=== PATIENT | male | born 1935 | race Asian ===

== ENCOUNTER 2022-02-26 03:57 | Inpatient (IN) | payer MEDICARE, OTHER ==
[~2022-02-26] VITALS: Ht 170.2 cm; Wt 81.5 kg
[2022-02-26] MEDS ORDERED: IPRATROPIUM BROM 0.5 MG/2.5ML INH SOL NEB ONE (04:15)
[2022-02-26] MEDS ORDERED: methylPREDNISolone SOD SUCC 125 MG/2 ML VL IV ONE (04:15)
[2022-02-26] MEDS ORDERED: ALBUTEROL SULF 2.5 MG/0.5ML(0.5%) NEB SOLN NEB ONE (04:15)
[2022-02-26 04:22] LABS: Basophils # (auto) 0 10 ^3/uL (0-0.2); Basophils % (auto) 0.1 % (0.0-2.0); Eosinophils # (auto) 0.1 10 ^3/uL (0-0.8); Eosinophils % (auto) 0.5 % (0.0-7.0); Hematocrit 50.3 % (41.0-53.0); Hemoglobin 17.2 g/dL (13.5-17.5); Lymphocytes # (auto) 2.4 10 ^3/uL (0.4-5.4); Lymphocytes % (auto) 22.6 % (10.0-50.0); Mean Corpuscular Hemoglobin 29.8 pg (28.0-32.0); Mean Corpuscular Hgb Conc. 34.1 g/dL (32.0-36.0); Mean Corpuscular Volume 87.5 fL (80.0-100.0); Monocytes # (auto) 0.8 10 ^3/uL (0-1.3); Monocytes % (auto) 7.1 % (0.0-12.0); Neutrophils # (auto) 7.4 10 ^3/uL (1.6-8.6); Neutrophils % (auto) 69.7 % (37.0-80.0); Nucleated Red Blood Cells % 0.3 %; Red Blood Cells 5.75 10^6/uL (4.5-5.90); Red Cell Distribution Width 13.6 % (11.8-14.3); White Blood Cell 10.7 10^3/uL (4.4-10.8)
[2022-02-26 04:41] LABS: Magnesium 2.1 mg/dL (1.6-2.6); Potassium 4.2 mmol/L (3.5-5.1)
[2022-02-26 04:43] LABS: Lactic Acid w/Reflex 2.6 mmol/L (0.4-2.0)
[2022-02-26 04:45] LABS: BUN/Creatinine Ratio 16.4; Bilirubin, Total 1.2 mg/dL (0.2-1.0); Total Protein 7.8 g/dL (6.4-8.2)
[2022-02-26] MEDS ORDERED: AZITHROMYCIN 500MG/ 250ML 250 ML IV ONE (04:45)
[2022-02-26] MEDS ORDERED: cefTRIAXone SOD 1,000 MG VL IV ONE (04:45)
[2022-02-26 04:49] LABS: INR 0.97 (0.9-1.15); Partial Thromboplastin Time 29.3 sec (24.6-33.4)
[2022-02-26] MEDS ORDERED: IOHEXOL 350 MG/ML 100ML IJ ONE (05:22)
[2022-02-26 09:57] VITALS: BP 128/60
[2022-02-26] MEDS: methylPREDNISolone SOD SUCC 125 MG/2 ML VL IV SCH ×3 (12:07→22:53)
[2022-02-26] MEDS ORDERED: HEPARIN SODIUM (PORCINE) 5000 UNITS/ML 1ML VIAL IV ONE ×3 (12:15)
[2022-02-26] MEDS: HEPARIN DRIP/D5W 100UNITS/ML 250 ML IV SCH (12:26)
[2022-02-26 12:29] LABS: INR 0.97 (0.9-1.15); Partial Thromboplastin Time 27.8 sec (24.6-33.4)
[2022-02-26 12:37] LABS: Basophils # (auto) 0 10 ^3/uL (0-0.2); Basophils % (auto) 0.1 % (0.0-2.0); Eosinophils # (auto) 0 10 ^3/uL (0-0.8); Hematocrit 51.1 % (41.0-53.0); Hemoglobin 16.8 g/dL (13.5-17.5); Lymphocytes # (auto) 0.4 10 ^3/uL (0.4-5.4); Lymphocytes % (auto) 7.6 % (10.0-50.0); Mean Corpuscular Hemoglobin 28.7 pg (28.0-32.0); Mean Corpuscular Volume 87.2 fL (80.0-100.0); Monocytes # (auto) 0.1 10 ^3/uL (0-1.3); Monocytes % (auto) 1.1 % (0.0-12.0); Neutrophils # (auto) 4.9 10 ^3/uL (1.6-8.6); Neutrophils % (auto) 91.2 % (37.0-80.0); Nucleated Red Blood Cells % 0.1 %; Red Blood Cells 5.86 10^6/uL (4.5-5.90); Red Cell Distribution Width 13.5 % (11.8-14.3)
[2022-02-26 12:39] LABS: White Blood Cell 5.3 10^3/uL (4.4-10.8)
[2022-02-26 19:11] LABS: INR 1.03 (0.9-1.15)
[2022-02-26 19:27] LABS: Partial Thromboplastin Time > 139.0 sec (24.6-33.4)
[2022-02-27] VITALS (7 sets, daily range): BP systolic 116–143; BP diastolic 59–76
[2022-02-27 02:55] LABS: INR 1.02 (0.9-1.15)
[2022-02-27 03:00] LABS: Partial Thromboplastin Time 105.2 sec (24.6-33.4)
[2022-02-27] MEDS: HEPARIN DRIP/D5W 100UNITS/ML 250 ML IV SCH (04:00)
[2022-02-27] MEDS: methylPREDNISolone SOD SUCC 125 MG/2 ML VL IV SCH ×2 (05:26→11:05)
[2022-02-27] MEDS ORDERED: FUR20I IM (07:19)
[2022-02-27] MEDS ORDERED: TRAV0.00 OP (07:19)
[2022-02-27] MEDS ORDERED: ALBUAER3 IN (07:19)
[2022-02-27] MEDS ORDERED: DILT60TA PO (07:19)
[2022-02-27] MEDS ORDERED: DOXY100C2 PO (07:19)
[2022-02-27] MEDS ORDERED: FLUT1AER3 IN (07:19)
[2022-02-27] MEDS ORDERED: POM (07:19)
[2022-02-27] MEDS ORDERED: PRED1SUS4 OP (07:19)
[2022-02-27] MEDS ORDERED: TRIA0.1P17 TOP (07:19)
[2022-02-27] MEDS ORDERED: ALBU0.084 IN (07:19)
[2022-02-27 10:32] LABS: INR 0.99 (0.9-1.15); Partial Thromboplastin Time 57.3 sec (24.6-33.4)
[2022-02-27] MEDS: cefTRIAXone 1GM/50ML D5W 50 ML IV SCH (11:05)
[2022-02-27] MEDS ORDERED: APIXABAN 5 MG TAB PO SCH (12:00)
[2022-02-27] MEDS: AZITHROMYCIN 500MG/ 250ML 250 ML IV SCH (12:04)
[2022-02-27] MEDS ORDERED: guaiFENesin-DM 100/10mg/5ml SYR PO PRN (12:45)
[2022-02-27] MEDS: APIXABAN 5 MG TAB PO SCH ×2 (13:04→22:35)
[2022-02-27] MEDS ORDERED: IPRATROPIUM BROM 0.5 MG/2.5ML INH SOL NEB PRN (15:00)
[2022-02-27] MEDS ORDERED: LEVALBUTEROL HCL 1.25 MG/3 ML NEB NEB PRN (15:00)
[2022-02-27] MEDS: IPRATROPIUM BROM 0.5 MG/2.5ML INH SOL NEB SCH ×2 (19:15→22:09)
[2022-02-27] MEDS: LEVALBUTEROL HCL 1.25 MG/3 ML NEB NEB SCH ×2 (19:15→22:09)
[2022-02-27] MEDS ORDERED: FAMOTIDINE 20 MG TAB PO SCH (22:00)
[2022-02-27] MEDS: methylPREDNISolone SOD SUCC 40 MG/ML VL IV SCH (22:32)
[2022-02-27] MEDS: dilTIAZem HCL 60 MG TAB PO SCH (22:33)
[2022-02-28] MEDS: LEVALBUTEROL HCL 1.25 MG/3 ML NEB NEB SCH ×6 (02:08→21:40)
[2022-02-28] MEDS: IPRATROPIUM BROM 0.5 MG/2.5ML INH SOL NEB SCH ×6 (02:08→21:40)
[2022-02-28 05:00] VITALS: BP 115/54
[2022-02-28 05:20] LABS: Basophils # (auto) 0 10 ^3/uL (0-0.2); Basophils % (auto) 0.1 % (0.0-2.0); Eosinophils # (auto) 0 10 ^3/uL (0-0.8); Hematocrit 45.6 % (41.0-53.0); Lymphocytes # (auto) 0.5 10 ^3/uL (0.4-5.4); Lymphocytes % (auto) 3.9 % (10.0-50.0); Mean Corpuscular Hemoglobin 28.7 pg (28.0-32.0); Mean Corpuscular Volume 86.9 fL (80.0-100.0); Monocytes # (auto) 0.4 10 ^3/uL (0-1.3); Monocytes % (auto) 2.9 % (0.0-12.0); Neutrophils # (auto) 12.8 10 ^3/uL (1.6-8.6); Neutrophils % (auto) 93.1 % (37.0-80.0); Nucleated Red Blood Cells % 0.1 %; Red Blood Cells 5.25 10^6/uL (4.5-5.90); Red Cell Distribution Width 13.3 % (11.8-14.3); White Blood Cell 13.8 10^3/uL (4.4-10.8)
[2022-02-28 05:41] LABS: Calcium 8.9 mg/dL (8.5-10.1); Potassium 4.6 mmol/L (3.5-5.1)
[2022-02-28 05:46] LABS: BUN/Creatinine Ratio 31.9; Bilirubin, Total 0.4 mg/dL (0.2-1.0)
[2022-02-28] MEDS: dilTIAZem HCL 60 MG TAB PO SCH ×3 (05:54→22:02)
[2022-02-28] MEDS: methylPREDNISolone SOD SUCC 40 MG/ML VL IV SCH ×2 (08:47→21:47)
[2022-02-28] MEDS: FAMOTIDINE 20 MG TAB PO SCH (08:47)
[2022-02-28] MEDS: APIXABAN 5 MG TAB PO SCH ×2 (08:47→21:48)
[2022-02-28] MEDS: cefTRIAXone 1GM/50ML D5W 50 ML IV SCH (08:47)
[2022-02-28 09:00] VITALS: BP 128/65
[2022-02-28] MEDS: AZITHROMYCIN 500MG/ 250ML 250 ML IV SCH (11:23)
[2022-02-28 13:00] VITALS: BP 123/54
[2022-02-28] MEDS ORDERED: CHOLECALCIFEROL (VITD3) 2,000 UNIT CAP/TAB PO ONE (13:00)
[2022-02-28] MEDS ORDERED: DEXTROSE (50%) 50ML SYRG IV PRN (13:00)
[2022-02-28 17:00] VITALS: BP 112/58
[2022-02-28] MEDS: InsuLIN REG 1unit/0.01ml Soln (100units/ml) SC SCH ×2 (18:00→22:02)
[2022-02-28] MEDS: ACCU-CHEK COMFORT CURVE STRIP VI SCH ×2 (18:08→22:02)
[2022-02-28 22:00] VITALS: BP 103/50
[2022-03-01] MEDS: IPRATROPIUM BROM 0.5 MG/2.5ML INH SOL NEB SCH ×6 (01:52→22:06)
[2022-03-01] MEDS: LEVALBUTEROL HCL 1.25 MG/3 ML NEB NEB SCH ×6 (01:52→22:06)
[2022-03-01 05:00] VITALS: BP 120/57
[2022-03-01 05:23] LABS: Basophils # (auto) 0 10 ^3/uL (0-0.2); Eosinophils # (auto) 0 10 ^3/uL (0-0.8); Hematocrit 44.4 % (41.0-53.0); Hemoglobin 15.1 g/dL (13.5-17.5); Lymphocytes # (auto) 0.5 10 ^3/uL (0.4-5.4); Lymphocytes % (auto) 4.4 % (10.0-50.0); Mean Corpuscular Hemoglobin 29.3 pg (28.0-32.0); Mean Corpuscular Hgb Conc. 33.9 g/dL (32.0-36.0); Mean Corpuscular Volume 86.5 fL (80.0-100.0); Monocytes # (auto) 0.3 10 ^3/uL (0-1.3); Monocytes % (auto) 2.5 % (0.0-12.0); Neutrophils # (auto) 10.4 10 ^3/uL (1.6-8.6); Neutrophils % (auto) 93.1 % (37.0-80.0); Nucleated Red Blood Cells % 0.1 %; Red Blood Cells 5.13 10^6/uL (4.5-5.90); Red Cell Distribution Width 13.6 % (11.8-14.3); White Blood Cell 11.2 10^3/uL (4.4-10.8)
[2022-03-01 05:36] LABS: Calcium 8.8 mg/dL (8.5-10.1); Potassium 5.2 mmol/L (3.5-5.1)
[2022-03-01] MEDS: InsuLIN REG 1unit/0.01ml Soln (100units/ml) SC SCH ×4 (06:00→22:20)
[2022-03-01] MEDS: ACCU-CHEK COMFORT CURVE STRIP VI SCH ×4 (06:25→22:20)
[2022-03-01] MEDS: dilTIAZem HCL 60 MG TAB PO SCH ×3 (06:26→22:11)
[2022-03-01 08:30] VITALS: BP 111/54
[2022-03-01] MEDS: cefTRIAXone 1GM/50ML D5W 50 ML IV SCH (10:09)
[2022-03-01] MEDS: FAMOTIDINE 20 MG TAB PO SCH (10:10)
[2022-03-01] MEDS: methylPREDNISolone SOD SUCC 40 MG/ML VL IV SCH ×2 (10:10→22:10)
[2022-03-01] MEDS: APIXABAN 5 MG TAB PO SCH ×2 (10:11→22:11)
[2022-03-01] MEDS: CHOLECALCIFEROL (VITD3) 2,000 UNIT CAP/TAB PO SCH (10:11)
[2022-03-01] MEDS: AZITHROMYCIN 500MG/ 250ML 250 ML IV SCH (12:13)
[2022-03-01 12:56] VITALS: BP 129/54
[2022-03-01] MEDS ORDERED: APIX5TAB PO (16:27)
[2022-03-01] MEDS ORDERED: AZIT250T8 PO (16:27)
[2022-03-01 16:30] VITALS: BP 157/67
[2022-03-01 22:00] VITALS: BP 136/89
[2022-03-02] MEDS: IPRATROPIUM BROM 0.5 MG/2.5ML INH SOL NEB SCH ×4 (02:15→14:11)
[2022-03-02] MEDS: LEVALBUTEROL HCL 1.25 MG/3 ML NEB NEB SCH ×4 (02:15→14:11)
[2022-03-02 05:00] VITALS: BP 126/67
[2022-03-02] MEDS: dilTIAZem HCL 60 MG TAB PO SCH ×3 (05:24→22:10)
[2022-03-02] MEDS: ACCU-CHEK COMFORT CURVE STRIP VI SCH ×4 (05:24→22:10)
[2022-03-02] MEDS: InsuLIN REG 1unit/0.01ml Soln (100units/ml) SC SCH ×4 (05:34→22:10)
[2022-03-02 09:00] VITALS: BP 132/74
[2022-03-02] MEDS: cefTRIAXone 1GM/50ML D5W 50 ML IV SCH (10:24)
[2022-03-02] MEDS: FAMOTIDINE 20 MG TAB PO SCH (10:25)
[2022-03-02] MEDS: CHOLECALCIFEROL (VITD3) 2,000 UNIT CAP/TAB PO SCH (10:25)
[2022-03-02] MEDS: methylPREDNISolone SOD SUCC 40 MG/ML VL IV SCH ×2 (10:25→22:10)
[2022-03-02] MEDS: APIXABAN 5 MG TAB PO SCH ×2 (10:25→22:10)
[2022-03-02] MEDS: AZITHROMYCIN 500MG/ 250ML 250 ML IV SCH (12:30)
[2022-03-02 13:00] VITALS: BP 137/74
[2022-03-02 17:00] VITALS: BP 125/75
[2022-03-02 22:00] VITALS: BP 105/60
[2022-03-03] MEDS: IPRATROPIUM BROM 0.5 MG/2.5ML INH SOL NEB SCH ×4 (02:51→10:23)
[2022-03-03] MEDS: LEVALBUTEROL HCL 1.25 MG/3 ML NEB NEB SCH ×4 (02:51→10:24)
[2022-03-03 03:09] VITALS: BP 105/60
[2022-03-03 05:00] VITALS: BP 118/55
[2022-03-03] MEDS: dilTIAZem HCL 60 MG TAB PO SCH (06:29)
[2022-03-03] MEDS: ACCU-CHEK COMFORT CURVE STRIP VI SCH ×2 (06:29→11:55)
[2022-03-03] MEDS: InsuLIN REG 1unit/0.01ml Soln (100units/ml) SC SCH ×2 (06:35→11:56)
[2022-03-03 08:20] VITALS: BP 122/63
[2022-03-03] MEDS: methylPREDNISolone SOD SUCC 40 MG/ML VL IV SCH (09:50)
[2022-03-03] MEDS: CHOLECALCIFEROL (VITD3) 2,000 UNIT CAP/TAB PO SCH (09:50)
[2022-03-03] MEDS: APIXABAN 5 MG TAB PO SCH (09:50)
[2022-03-03] MEDS: cefTRIAXone 1GM/50ML D5W 50 ML IV SCH (09:51)
[2022-03-03] MEDS: FAMOTIDINE 20 MG TAB PO SCH (09:51)
[2022-03-03] MEDS: AZITHROMYCIN 500MG/ 250ML 250 ML IV SCH (09:51)
[2022-03-03 11:02] VITALS: BP 105/60
[2022-03-03] MEDS ORDERED: PSEU120T18 PO (11:28)
[2022-03-03 12:05] VITALS: BP 120/63
[2022-03-06] MEDS ORDERED: APIXABAN 5 MG TAB PO SCH (22:00)
== END 2022-03-03 13:12 | disposition home health service (06) | DRG 175 ==
LOC: ER 03:57 → TELE 10:55 → TELE-WESTW 22:56
PROVIDERS: ADMIT Internal Medicine; ATTEND Internal Medicine Pulmonary Disease
PROC: 5A09357 Assistance with Respiratory Ventilation, Less than 24 Consecutive Hours, Continuous Positive Airway Pressure (ICD-10-PCS; principal; 2022-02-26)
DX: I26.99 Other pulmonary embolism without acute cor pulmonale (principal); J18.9 Pneumonia, unspecified organism; J96.21 Acute and chronic respiratory failure with hypoxia; J44.1 Chronic obstructive pulmonary disease with (acute) exacerbation; J44.0 Chronic obstructive pulmonary disease with (acute) lower respiratory infection; J98.11 Atelectasis; R65.10 Systemic inflammatory response syndrome (SIRS) of non-infectious origin without acute organ dysfunction; I27.20 Pulmonary hypertension, unspecified; R73.03 Prediabetes; Z20.822 Contact with and (suspected) exposure to COVID-19; E55.9 Vitamin D deficiency, unspecified; Z82.49 Family history of ischemic heart disease and other diseases of the circulatory system; Z87.891 Personal history of nicotine dependence
CPT/HCPCS: 36415; 36600; 71045; 71275; 80048; 80053; 80061; 82140; 82247; 82306; 82805; 82962; 83036; 83605; 83735; 83880; 84443; 84484; 85025; 85379; 85610; 85730; 87040; 93005; 93306; 93970; 94640; 94660; 96365; 96366; 96375; 97163; 99291; G0378; J0696; J1815

== ENCOUNTER → 2022-10-24 | Emergency (ER) | payer MEDICARE, OTHER ==
[~2022-10-24] VITALS: Ht 172.7 cm; Wt 78.1 kg
[~2022-10-24] MED LIST: ALBU0.084 IN; ALBUAER3 IN; APIX5TAB PO; AZIT250T8 PO; DILT60TA PO; FLUT1AER3 IN; FUR20I IM; POM; PRED1SUS4 OP; PSEU120T18 PO; TRAV0.00 OP; TRIA0.1P17 TOP
[2022-10-24 18:52] VITALS: BP 131/78
[2022-10-24 19:26] LABS: Basophils # (auto) 0 10 ^3/uL (0-0.2); Basophils % (auto) 0.2 % (0.0-2.0); Eosinophils # (auto) 0.1 10 ^3/uL (0-0.8); Eosinophils % (auto) 1.9 % (0.0-7.0); Hemoglobin 14.4 g/dL (13.5-17.5); Lymphocytes # (auto) 0.4 10 ^3/uL (0.4-5.4); Lymphocytes % (auto) 6.2 % (10.0-50.0); Mean Corpuscular Hemoglobin 28.8 pg (28.0-32.0); Mean Corpuscular Hgb Conc. 33.4 g/dL (32.0-36.0); Mean Corpuscular Volume 86.2 fL (80.0-100.0); Monocytes # (auto) 0.3 10 ^3/uL (0-1.3); Monocytes % (auto) 4.3 % (0.0-12.0); Neutrophils # (auto) 5.6 10 ^3/uL (1.6-8.6); Neutrophils % (auto) 87.4 % (37.0-80.0); Red Blood Cells 4.99 10^6/uL (4.5-5.90); Red Cell Distribution Width 13.8 % (11.8-14.3); White Blood Cell 6.5 10^3/uL (4.4-10.8)
[2022-10-24 19:42] LABS: Partial Thromboplastin Time 31.9 sec (24.6-33.4)
[2022-10-24 19:55] LABS: Albumin 3.7 g/dL (3.4-5.0); BUN/Creatinine Ratio 19.6; Calcium 8.7 mg/dL (8.5-10.1); Magnesium 2.2 mg/dL (1.6-2.6); Potassium 4.5 mmol/L (3.5-5.1)
[2022-10-24 19:58] LABS: Bilirubin, Total 0.9 mg/dL (0.2-1.0); Total Protein 6.6 g/dL (6.4-8.2)
== END | disposition left against medical advice (07) ==
LOC: ER 18:22
DX: J44.1 Chronic obstructive pulmonary disease with (acute) exacerbation (principal); Z53.29 Procedure and treatment not carried out because of patient's decision for other reasons
CPT/HCPCS: 36415; 71045; 80053; 83735; 83880; 84484; 85025; 85379; 85610; 85730; 93005

== ENCOUNTER 2023-01-31 09:26 | Emergency (ER) | payer MEDICARE, MEDICAID ==
[~2023-01-31] VITALS: Ht 172.7 cm; Wt 79.0 kg
[~2023-01-31 09:26] MED LIST changes: +AZIT-81 PO; -AZIT250T8 PO; -TRIA0.1P17 TOP; +TRIA0.1P2 TOP
[2023-01-31 10:24] VITALS: BP 152/71
[2023-01-31 11:01] LABS: Basophils # (auto) 0 10 ^3/uL (0-0.2); Basophils % (auto) 1.1 % (0.0-2.0); Eosinophils # (auto) 0.3 10 ^3/uL (0-0.8); Eosinophils % (auto) 6.5 % (0.0-7.0); Hematocrit 38.5 % (41.0-53.0); Hemoglobin 12.9 g/dL (13.5-17.5); Lymphocytes # (auto) 0.7 10 ^3/uL (0.4-5.4); Lymphocytes % (auto) 16.6 % (10.0-50.0); Mean Corpuscular Hgb Conc. 33.4 g/dL (32.0-36.0); Mean Corpuscular Volume 86.8 fL (80.0-100.0); Monocytes # (auto) 0.4 10 ^3/uL (0-1.3); Monocytes % (auto) 8.7 % (0.0-12.0); Neutrophils # (auto) 2.9 10 ^3/uL (1.6-8.6); Neutrophils % (auto) 67.1 % (37.0-80.0); Nucleated Red Blood Cells % 0.1 %; Red Blood Cells 4.44 10^6/uL (4.5-5.90); Red Cell Distribution Width 13.4 % (11.8-14.3); White Blood Cell 4.3 10^3/uL (4.4-10.8)
[2023-01-31 11:11] LABS: Albumin 3.5 g/dL (3.4-5.0); Calcium 8.5 mg/dL (8.5-10.1); Potassium 4.2 mmol/L (3.5-5.1)
[2023-01-31 11:15] LABS: BUN/Creatinine Ratio 18.3 (10.0-20.0); Bilirubin, Total 0.6 mg/dL (0.2-1.0); Total Protein 6.6 g/dL (6.4-8.2)
[2023-01-31 11:16] LABS: INR 1.02 (0.9-1.15); Partial Thromboplastin Time 31.1 sec (24.6-33.4)
[2023-02-01] MEDS ORDERED: CETI10TA2 PO (11:09)
== END 2023-01-31 11:40 | disposition home or self-care (01) ==
LOC: ER 09:26
DX: L76.21 Postprocedural hemorrhage of skin and subcutaneous tissue following a dermatologic procedure (principal); J44.9 Chronic obstructive pulmonary disease, unspecified; I10 Essential (primary) hypertension; Z88.1 Allergy status to other antibiotic agents
CPT/HCPCS: 36415; 80053; 85025; 85610; 85730